=== PATIENT | female | born 1990 | race American Indian/Alaskan Native ===

== ENCOUNTER 2018-03-18 13:37 | Emergency (ER) | payer MEDICAID ==
[2018-03-18 14:13] LABS: Basophils % (Auto) 0.2 % (0.0-1.8); Eosinophils # (Auto) 0.1 K/mm3 (0.0-0.4); Eosinophils % (Auto) 1.6 % (0.0-4.3); Hematocrit 38.1 % (30.3-42.9); Hemoglobin 12.9 gm/dl (10.1-14.3); Lymphocytes # (Auto) 2.4 K/mm3 (1.2-5.4); Lymphocytes % (Auto) 42.6 % (13.4-35.0); Mean Corpuscular HGB Conc 34 % (30-34); Mean Corpuscular Hemoglobin 30 pg (28-32); Mean Corpuscular Volume 89 fl (79-97); Monocytes # (Auto) 0.4 K/mm3 (0.0-0.8); Monocytes % (Auto) 6.5 % (0.0-7.3); Platelet Count 165 K/mm3 (140-440); Red Blood Count 4.28 M/mm3 (3.65-5.03); Red Cell Distribution Width 12.5 % (13.2-15.2)
[2018-03-18 14:57] LABS: Bilirubin,Urine NEG (Negative); Blood,Urine MOD (Negative); Color,Urine Yellow (Yellow); Mucus,Urine 1+ /HPF; Protein,Urine <15 mg/dL mg/dL (Negative); Urobilinogen,Urine < 2.0 mg/dL (<2.0)
--- NOTE | 2018-03-18 17:07 | Emergency Department Report ---
ED HPI - General Chief complaint: Vaginal Bleeding Stated complaint: 8 WEEKS AND BLEEDING Time Seen by Provider: 03/18/18 17:01 Source: patient Mode of arrival: Ambulatory Limitations: No Limitations - History of Present Illness Initial comments: This is a 27-year-old -[place] female who presents with vaginal bleeding for 2 days. Patient states she took a home test last and it was positive. Patient last menstrual period was 01/25/2018, A0. Patient states she was spotting and wearing a panier requires change twice a day. She called around to several [facility] clinics and could not get an appointment because she have [facility] insurance. She think she is 8 weeks gestation. She have appointment with Shadi on 03/27/2018. She is having diarrhea which she associates with . Patient denies passing large clots, abdominal pain, low back pain, vaginal discharge, nausea or vomiting, and chest pain. MD Complaint: vaginal bleeding Onset/Timin -: days(s) Radiation: none Severity: moderate Severity scale (0 -10): 7 Improves with: none Worsens with: none Associated symptoms: vaginal bleeding. denies: nausea/vomiting, vaginal discharge, abdominal pain, dysuria, headache, vision changes, malaise, dysparuenia, rash, seizure, shortness of breath, syncope, weakness Vaginal bleeding: light :: Yes Number of weeks : 8 OB History - Current : no complications OB History - Previous Pregnancies: no complications Last menstrual period: 01/25/18 Pre- care: none - Related Data : 2 Para: 1 Ab: 0 Home Medications Medication Instructions Recorded Confirmed Last Taken Acetaminophen [Tylenol] 325 mg PO Q4HR PRN 11/02/13 11/12/13 11/01/13 21:00 325 Vits96/Iron Fum/Folic 1 tab PO DAILY 11/02/13 11/12/13 11/09/13 23:45 [ Tablet] 1tab Previous Rx's Medication Instructions Recorded Last Taken Type Docusate Sodium [Colace] 100 mg PO BID PRN #60 capsule 11/10/13 Unknown Rx Ibuprofen [Motrin] 600 mg PO Q8H PRN #30 tablet 11/10/13 Unknown Rx Lidocaine/Prilocaine [Emla Cream] 5 gm TP ONCE #1 cream..g. 11/10/13 Unknown Rx oxyCODONE /ACETAMINOPHEN [Percocet 1 - 2 tab PO Q6HR PRN #30 tablet 11/10/13 Unknown Rx 5/325 mg] Ferrous Fumarate/Docusate(Nf) 1 each PO BID #90 tablet.er 11/13/13 Unknown Rx [Carol Ann-Sequels 106/50 mg] Allergies Allergy/AdvReac Type Severity Reaction Status Date / Time No Known Allergies Allergy Verified 10/24/13 21:27 ED Review of Systems ROS: Stated complaint: 8 WEEKS AND BLEEDING Other details as noted in HPI Constitutional: denies: chills, fever Respiratory: denies: cough, shortness of breath, wheezing Cardiovascular: denies: chest pain, palpitations Gastrointestinal: denies: abdominal pain, nausea, vomiting, diarrhea Genitourinary: other (veginal bleeding). denies: urgency, dysuria, discharge Neurological: denies: headache, weakness, paresthesias Psychiatric: denies: anxiety, depression ED Past Medical Hx - Past Medical History Previous Medical History?: No Hx Hypertension: No Hx Congestive Heart Failure: No Hx Diabetes: No Hx Deep Vein Thrombosis: No Hx Renal Disease: No Hx Sickle Cell Disease: No Hx Seizures: No Hx Asthma: No Hx COPD: No Hx HIV: No - Surgical History Past Surgical History?: No - Social History Smoking Status: Never Smoker Substance Use Type: None - Medications Home Medications: Home Medications Medication Instructions Recorded Confirmed Last Taken Type Acetaminophen [Tylenol] 325 mg PO Q4HR PRN 11/02/13 11/12/13 11/01/13 21:00 History 325 Vits96/Iron Fum/Folic 1 tab PO DAILY 11/02/13 11/12/13 11/09/13 23:45 History [ Tablet] 1tab Docusate Sodium [Colace] 100 mg PO BID PRN #60 capsule 11/10/13 Unknown Rx Ibuprofen [Motrin] 600 mg PO Q8H PRN #30 tablet 11/10/13 Unknown Rx Lidocaine/Prilocaine [Emla Cream] 5 gm TP ONCE #1 cream..g. 11/10/13 Unknown Rx oxyCODONE /ACETAMINOPHEN [Percocet 1 - 2 tab PO Q6HR PRN #30 tablet 11/10/13 Unknown Rx 5/325 mg] Ferrous Fumarate/Docusate(Nf) 1 each PO BID #90 tablet.er 11/13/13 Unknown Rx [Carol Ann-Sequels 106/50 mg] ED Physical Exam - General Limitations: No Limitations General appearance: alert, in no apparent distress - Respiratory Respiratory exam: Present: normal lung sounds bilaterally. Absent: respiratory distress - Cardiovascular Cardiovascular Exam: Present: regular rate, normal rhythm. Absent: systolic murmur, diastolic murmur, rubs, gallop - GI/Abdominal GI/Abdominal exam: Present: soft, normal bowel sounds. Absent: distended, tenderness, guarding, rebound, rigid, organomegaly, mass - Back Exam Back exam: Present: normal inspection. Absent: full ROM, tenderness, CVA tenderness (R), CVA tenderness (L), muscle spasm, paraspinal tenderness, vertebral tenderness, rash noted - Neurological Exam Neurological exam: Present: alert, oriented X3 - Psychiatric Psychiatric exam: Present: normal affect, normal mood - Skin Skin exam: Present: warm, dry, intact, normal color. Absent: rash ED Course Vital Signs 03/18/18 13:40 Temperature 98.9 F Pulse Rate 78 Respiratory 18 Rate Blood Pressure 119/70 O2 Sat by Pulse 100 Oximetry ED Medical Decision Making - Lab Data Result diagrams: 03/18/18 13:56 Lab Results 03/18/18 03/18/18 03/18/18 Range/Units 13:56 13:56 13:56 WBC 5.6 (4.5-11.0) K/mm3 RBC 4.28 (3.65-5.03) M/mm3 Hgb 12.9 (10.1-14.3) gm/dl Hct 38.1 (30.3-42.9) % MCV 89 (79-97) fl MCH 30 (28-32) pg MCHC 34 (30-34) % RDW 12.5 L (13.2-15.2) % Plt Count 165 (140-440) K/mm3 Lymph % (Auto) 42.6 H (13.4-35.0) % [place] % (Auto) 6.5 (0.0-7.3) % Eos % (Auto) 1.6 (0.0-4.3) % Baso % (Auto) 0.2 (0.0-1.8) % Lymph # 2.4 (1.2-5.4) K/mm3 [place] # 0.4 (0.0-0.8) K/mm3 Eos # 0.1 (0.0-0.4) K/mm3 Baso # 0.0 (0.0-0.1) K/mm3 Seg Neutrophils % 49.1 (40.0-70.0) % Seg Neutrophils # 2.7 (1.8-7.7) K/mm3 HCG, Quant 272.3 H (0-4) mIU/mL Urine Color (Yellow) Urine Turbidity (Clear) Urine pH (5.0-7.0) Ur Specific [place] (1.003-1.030) Urine Protein (Negative) mg/dL Urine Glucose (UA) (Negative) mg/dL Urine Ketones (Negative) mg/dL Urine Blood (Negative) Urine Nitrite (Negative) Urine Bilirubin (Negative) Urine Urobilinogen (<2.0) mg/dL Ur Leukocyte Esterase (Negative) Urine WBC (Auto) (0.0-6.0) /HPF Urine RBC (Auto) (0.0-6.0) /HPF U Epithel Cells (Auto) (0-13.0) /HPF Urine Mucus /HPF Blood Type O POSITIVE Antibody Screen Negative 03/18/18 Range/Units 14:34 WBC (4.5-11.0) K/mm3 RBC (3.65-5.03) M/mm3 Hgb (10.1-14.3) gm/dl Hct (30.3-42.9) % MCV (79-97) fl MCH (28-32) pg MCHC (30-34) % RDW (13.2-15.2) % Plt Count (140-440) K/mm3 Lymph % (Auto) (13.4-35.0) % [place] % (Auto) (0.0-7.3) % Eos % (Auto) (0.0-4.3) % Baso % (Auto) (0.0-1.8) % Lymph # (1.2-5.4) K/mm3 [place] # (0.0-0.8) K/mm3 Eos # (0.0-0.4) K/mm3 Baso # (0.0-0.1) K/mm3 Seg Neutrophils % (40.0-70.0) % Seg Neutrophils # (1.8-7.7) K/mm3 HCG, Quant (0-4) mIU/mL Urine Color Yellow (Yellow) Urine Turbidity Clear (Clear) Urine pH 5.0 (5.0-7.0) Ur Specific [place] 1.021 (1.003-1.030) Urine Protein <15 mg/dl (Negative) mg/dL Urine Glucose (UA) Neg (Negative) mg/dL Urine Ketones Neg (Negative) mg/dL Urine Blood Mod (Negative) Urine Nitrite Neg (Negative) Urine Bilirubin Neg (Negative) Urine Urobilinogen < 2.0 (<2.0) mg/dL Ur Leukocyte Esterase Neg (Negative) Urine WBC (Auto) 1.0 (0.0-6.0) /HPF Urine RBC (Auto) 18.0 (0.0-6.0) /HPF U Epithel Cells (Auto) 1.0 (0-13.0) /HPF Urine Mucus 1+ /HPF Blood Type Antibody Screen - Radiology Data Radiology results: report reviewed EXAM: US OB TRANSVAGINAL HISTORY: ab pain r/o ectopic last menstrual period January 25, 2018. Serum beta hCG 272.3 TECHNIQUE: Transvaginal grayscale and color-flow imaging of the uterus and ovaries was performed. Comparison: Transabdominal study also performed today FINDINGS: Endometrial thickness measures 16 millimeters. The uterus is unremarkable in appearance. There is no demonstration of an intrauterine gestation. The right ovary measures 5.3 centimeters x 3.7 centimeters x 2.3 centimeters and contains an approximately 1.5 centimeter cyst. Flow is demonstrated in the right ovary utilizing color flow imaging. The left ovary measures 2.9 centimeters x 1.8 centimeters x 3 centimeters and contains follicles. There is demonstration of free fluid in the cul-de-sac. IMPRESSION: 1. No demonstration of an intrauterine gestation. In the absence of demonstration of an intrauterine gestation an ectopic gestation cannot be excluded. Short-term follow-up in correlation with beta HCG is recommended. 2. Demonstration of free fluid in the cul-de-sac. - Medical Decision Making This is a 27 y.o. female presents with vaginal bleeding during for 2 days. Patient was examined by me. Vitals are normal and patient is in no acute distress. Obtained a urinalysis, CBC, hCG quant, and OB ultrasound. Quant 272.3 all other labs unremarkable. 1. No demonstration of an intrauterine gestation. In the absence of demonstration of an intrauterine gestation an ectopic gestation cannot be excluded. Short-term follow-up in correlation with beta HCG is recommended. 2. Demonstration of free fluid in the cul-de-sac. Patient instructed to have repeat hCG quant in 48 hours with OB/ [facility] ASSISTANT MANAGER or in ER to r/o ectopic . Patient discharged home in stable condition. Critical care attestation.: If time is entered above; I have spent that time in minutes in the direct care of this critically ill patient, excluding procedure time. ED Disposition Clinical Impression: Vaginal bleeding during , Threatened miscarriage Disposition: TO HOME OR SELFCARE Is pt being admited?: No Does the pt Need Aspirin: No Condition: Stable Instructions: Threatened Miscarriage (ED) Additional Instructions: Have repeat hCG quant labs in 48 hours with [facility] or ER. Follow up with [facility]ERC[facility]CTOR in 24-48 hours. Return to ER if increased vaginal bleeding, abdominal pain, and low back pain. Referrals: [facility] [Provider Group] - 3-5 Days [facility]IST[facility], [facility] [Provider Group] - 3-5 Days [facility] [Outside] - 3-5 Days Time of Disposition: 18:34 Print Language: JAPANESE
--- NOTE | 2018-03-18 17:08 | Emergency Department Report ---
Blank Doc - Documentation Documentation: Patient presents to the emergency department with a chief complaint of vaginal bleeding and abdominal pain. The patient states she is a possibly 4-6 weeks and is concerned about her symptoms. Patient has no other complaints. On physical exam abdomen is soft and nontender. Care will be handed over to the mid-level care provider with consultation by me as needed
--- NOTE | 2018-03-18 18:05 | Ultrasound Report ---
FINAL REPORT EXAM: US OB TRANSVAGINAL HISTORY: ab pain r/o ectopic last menstrual period January 25, 2018. Serum beta hCG 272.3 TECHNIQUE: Transvaginal grayscale and color-flow imaging of the uterus and ovaries was performed. Comparison: Transabdominal study also performed today FINDINGS: Endometrial thickness measures 16 millimeters. The uterus is unremarkable in appearance. There is no demonstration of an intrauterine gestation. The right ovary measures 5.3 centimeters x 3.7 centimeters x 2.3 centimeters and contains an approximately 1.5 centimeter cyst. Flow is demonstrated in the right ovary utilizing color flow imaging. The left ovary measures 2.9 centimeters x 1.8 centimeters x 3 centimeters and contains follicles. There is demonstration of free fluid in the cul-de-sac. IMPRESSION: 1. No demonstration of an intrauterine gestation. In the absence of demonstration of an intrauterine gestation an ectopic gestation cannot be excluded. Short-term follow-up in correlation with beta HCG is recommended. 2. Demonstration of free fluid in the cul-de-sac.
--- NOTE | 2018-03-18 18:07 | Ultrasound Report ---
FINAL REPORT EXAM: US OB < = 14 WEEKS FETUS HISTORY: ab pain r/o ectopic last menstrual period January 25, 2018 estimated gestational age by dates is 7 weeks 3 days. Beta HCG is 272.3 TECHNIQUE: Transabdominal grayscale and color-flow imaging of the pelvis was performed Comparison: Transvaginal study also performed today FINDINGS: The uterus measures 9.2 centimeters x 6 centimeters by 6 centimeters. Endometrial thickness measures 16 millimeters. There is no demonstration of an intrauterine gestation. The right ovary measures 3.9 centimeters x 2.2 centimeters x 2.5 centimeters and contains an approximately 1.5 centimeter cyst. Flow is demonstrated in the right ovary utilizing color flow imaging. The left ovary measures 3 centimeters x 1.3 centimeters x 2 centimeters and contains follicles. IMPRESSION: 1. Increased thickness of the endometrium. 2. No demonstration of an intrauterine gestation. In the absence of demonstration of an intrauterine gestation an ectopic gestation cannot be excluded. Short-term follow-up in correlation with beta HCG is recommended.
[2018-03-18 18:41] VITALS: BP 120/74
== END 2018-03-18 18:40 | disposition home or self-care (01) ==
LOC: ED 13:37
DX: O20.0 Threatened abortion (principal); Z3A.08 8 weeks gestation of pregnancy
CPT/HCPCS: 36415; 76801; 76817; 81001; 84702; 85025; 86850; 86900; 86901